=== PATIENT | male | born 1965 | race Two or more races ===

== ENCOUNTER 2020-11-24 09:37 | Emergency (ER) | payer OTHER ==
[~2020-11-24] VITALS: Ht 180.3 cm; Wt 79.4 kg
[~2020-11-24 09:37] MED LIST: ETODOLAC400 MG PO; MORGIDOX100 MG PO
[2020-11-24] MEDS ORDERED: AVIDOXY100 MG PO (19:59)
[2020-11-24] MEDS ORDERED: MEDROLPACK PO (20:01)
== END 2020-11-24 20:42 | disposition home or self-care (01) ==
LOC: ER 09:37
DX: A27.89 Other forms of leptospirosis (principal); Z11.52 Encounter for screening for COVID-19

== ENCOUNTER 2024-04-24 10:05 | Emergency (ER) | payer OTHER ==
[~2024-04-24] VITALS: Ht 180.3 cm; Wt 83.9 kg
[~2024-04-24 10:05] MED LIST changes: +AVIDOXY100 MG PO; +MEDROLPACK PO
[2024-04-24] MEDS ORDERED: LOSARTAN POTASS50 MG PO (10:18)
[2024-04-24 10:21] VITALS: O2SAT 97
[2024-04-24] MEDS ORDERED: KETOROLAC TROMETHAMINE 15 MG VIAL IM STA (10:35)
[2024-04-24] MEDS ORDERED: CELEBREX200MG PO (12:45)
[2024-04-24 13:18] VITALS: BP 115/79
== END 2024-04-24 13:20 | disposition home or self-care (01) ==
LOC: ER 10:07
DX: S46.911A Strain of unspecified muscle, fascia and tendon at shoulder and upper arm level, right arm, initial encounter (principal); X50.1XXA Overexertion from prolonged static or awkward postures, initial encounter; Y93.89 Activity, other specified; Y92.89 Other specified places as the place of occurrence of the external cause

== ENCOUNTER 2024-06-17 09:01 | Emergency (ER) | payer OTHER ==
[~2024-06-17] VITALS: Ht 180.3 cm; Wt 83.9 kg
[~2024-06-17 09:01] MED LIST changes: +CELEBREX200MG PO; +LOSARTAN POTASS50 MG PO
[2024-06-17] MEDS ORDERED: KETOROLAC TROMETHAMINE 60 MG VIAL IM STA (09:42)
[2024-06-17] MEDS ORDERED: CLONIDINE HCL 0.1 MG TABLET PO STA (09:42)
[2024-06-17] MEDS ORDERED: CLONIDINE HCL 0.1 MG TABLET PO ONE (09:48)
[2024-06-17] MEDS ORDERED: KETOROLAC TROMETHAMINE 60 MG VIAL IM ONE (09:48)
[2024-06-17 10:08] LABS: HEMATOCRIT 48.3 % (39.0-48.0); MEAN CELL VOLUME 94.2 fL (80.0-100.00); MEAN CORPUSCULAR HEMOGLOBIN 33.1 pg (27.00-32.0); MEAN CORPUSCULAR HGB CONC 35.1 g/dl (32.0-36.0); PLATELET COUNT 240 K/uL (150-450); RED BLOOD COUNT 5.13 M/uL (4.00-6.00); RED CELL DISTRIBUTION WIDTH 13.8 % (11.5-14.5)
[2024-06-17 10:26] LABS: CALCIUM 9.4 mg/dL (8.5-10.1); GFR 76.48; POTASSIUM 4.58 mEq/L (3.5-5.1)
== END 2024-06-17 11:16 | disposition home or self-care (01) ==
LOC: ER 09:03
PROVIDERS: General Practice
DX: I10 Essential (primary) hypertension (principal)

== ENCOUNTER 2024-09-13 07:22 | Day surgery (SDC) | payer OTHER ==
[2024-09-05 09:07] VITALS: BP 160/90
[2024-09-05 09:24] LABS: HEMATOCRIT 47.5 % (39.0-48.0); MEAN CORPUSCULAR HEMOGLOBIN 32.5 pg (27.00-32.0); MEAN CORPUSCULAR HGB CONC 33.8 g/dl (32.0-36.0); PLATELET COUNT 217 K/uL (150-450); RED BLOOD COUNT 4.94 M/uL (4.00-6.00)
[2024-09-05 09:45] LABS: URINE BACTERIA 9.7 uL (0.0-1933); URINE RBC 2.2 uL (0.0-20.8); URINE WBC 2.3 uL (0.0-23.2)
[2024-09-05 10:10] LABS: INR 0.98; PARTIAL THROMBOPLASTIN TIME 29.9 SECONDS (22.0-34.0); PROTHROMBIN TIME 10.7 SECONDS (9.0-11.5)
[2024-09-05 10:20] LABS: PH,URINE 5.5 (5.0-8.0); URINE APPEARANCE Clear; URINE BILIRRUBIN Negative (NEGATIVE); URINE BLOOD Negative; URINE CAST 0.44 uL (0.0-1.40); URINE COLOR Yellow; URINE EPITHELIAL CELLS 0.7 uL (0.0-38.8); URINE GLUCOSE Negative (NEGATIVE); URINE KETONE Negative (NEGATIVE); URINE LEUKOCYTE Negative; URINE NITRATE Negative; URINE PROTEIN Negative (NEGATIVE); URINE UROBILINOGEN 0.2 E.U./dl
[2024-09-05 10:52] LABS: ALBUMIN 4.2 gm/dL (3.4-5.0); BILIRUBIN TOTAL 0.66 mg/dL (0.3-1.2); CALCIUM 9.6 mg/dL (8.5-10.1); GFR 76.22; GLOBULINA 3.1 G/DL (2.4-3.5); POTASSIUM 4.3 mEq/L (3.5-5.1); TOTAL PROTEIN 7.3 gm/dL (6.4-8.2)
[~2024-09-13] VITALS: Ht 180.3 cm; Wt 81.6 kg
[2024-09-13] MEDS ORDERED: BUPIVACAINE HCL/MPF 0.5% 30ML VIAL ONE (07:42)
[2024-09-13] MEDS ORDERED: CEFAZOLIN SODIUM 1,000 MG VIAL ONE (07:42)
[2024-09-13] MEDS ORDERED: KETOROLAC TROMETHAMINE 30 MG VIAL ONE ×3 (07:59→10:22)
[2024-09-13] MEDS ORDERED: BUPIVACAINE HCL 30 ML VIAL IJ ONE (09:45)
[2024-09-13] MEDS ORDERED: CEFAZOLIN SODIUM 1,000 MG VIAL IV ONE (09:45)
[2024-09-13] MEDS ORDERED: KETOROLAC TROMETHAMINE 30 MG VIAL IU ONE (09:45)
[2024-09-13] MEDS ORDERED: LIDOCAINE HCL 1%/EPINEPHRINE 20ML VIAL IJ ONE (09:45)
[2024-09-13] MEDS ORDERED: ISOPROPYL ALCOHOL 30 ML OUNCE TOP ONE (09:45)
[2024-09-13] MEDS ORDERED: SUGAMMADEX SODIUM 200 MG/2 ML VIAL IV ONE ×2 (10:14→11:00)
[2024-09-13] MEDS ORDERED: KETOROLAC TROMETHAMINE 60 MG VIAL IM ONE (11:00)
[2024-09-13] MEDS ORDERED: MORPHINE SULFATE 4 MG/ML VIAL IV ONE (11:55)
== END 2024-09-13 13:10 | disposition home or self-care (01) ==
LOC: CIR.AMB 07:22
PROVIDERS: ATTEND Orthopaedic Surgery
DX: M75.121 Complete rotator cuff tear or rupture of right shoulder, not specified as traumatic (principal); M75.21 Bicipital tendinitis, right shoulder; M24.111 Other articular cartilage disorders, right shoulder; I10 Essential (primary) hypertension